=== PATIENT | male | born 1955 | race Asian ===

== ENCOUNTER 2016-12-02 07:52 | Emergency (ER) | payer SELFPAY ==
--- NOTE | 2016-12-02 17:39 | Emergency Room Report ---
History of Present Illness General Chief Complaint: To Be Triaged Medical Decision Making Diagnostic Impression: Primary Impression: Patient left without being seen ER Course patient left prior to triage or MD evaluation Status: unchanged Disposition: LEFT W/OUT BEING SEEN Condition: Unknown Referrals: NOT CHOSEN ETHAN/,REFERRING (PCP) MICHEL ANGULO M.D. Dec 02, 2016 17:39
== END 2016-12-02 08:06 | disposition left against medical advice (07) ==
LOC: EMR 08:06
DX: Z53.21 Procedure and treatment not carried out due to patient leaving prior to being seen by health care provider (principal)